=== PATIENT | male | born 1975 | race African-American/Black ===

== ENCOUNTER 2025-05-30 05:27 | Emergency (ER) | payer BC ==
[~2025-05-30] VITALS: Ht 177.8 cm; Wt 109.0 kg
[2025-05-30 05:41] VITALS: BP 122/94; PULSE 85; RESP 18; TEMP 36.7; O2SAT 99
[2025-05-30] MEDS ORDERED: BENZ100C86 MT (05:44)
== END 2025-05-30 06:05 | disposition home or self-care (01) ==
LOC: ER 05:59
DX: J06.9 Acute upper respiratory infection, unspecified (principal); B97.89 Other viral agents as the cause of diseases classified elsewhere
CPT/HCPCS: 99283